=== PATIENT | female | born 1995 ===

== ENCOUNTER 2025-08-23 19:19 | Outpatient (REF) | payer OTHER, SELFPAY ==
--- OUTSIDE RECORDS SUMMARY | 2016-07-31 12:48 | XMS_ITS | Continuity of Care Document ---
Author Organization [facility] Address [address] [place] [address] Phone Care Team Providers Care Sonar Technician Name Role Phone Favian Rodríguez Unavailable Unavailable Allergies, Adverse Reactions, Alerts Substance Reaction Status Criticality No Known Allergies Active No Inform ation Medications Medication Instructions Dosage Effective Dates (start - stop) Status Comments Sprintec (28) 0.25 mg-35 mcg tablet take 1 tablet by oral route every day 1.00 tablet - Active Patient does continuous OCPs Problems Condition Type Effective Dates (start - stop) Clini gracie Status Comments No Known Problems Procedures Procedure Date OFFICE/OUTPATIENT VISIT, EST EST FP MEDICAID URINE TEST FLU VACCINE, 3 YRS & >, IM OFFICE/OUTPATIENT VISIT, EST IMMUNIZATION ADMIN FLU VAC NO PRSV 4 IRINA 3 YRS+ OFFICE/OUTPATIENT VISIT, EST IMMUNIZATION ADMIN HEPB VACC PED/ADOL 3 DOSE IM TB INTRADERMAL TEST TB INTRADERMAL TEST HEP B VACCINE, ADULT, IM OFFICE/OUTPATIENT VISIT, EST TB INTRADERMAL TEST IMMUNIZATION ADMIN HEP B VACCINE, ADULT, IM TB INTRADERMAL TEST OFFICE/OUTPATIENT VISIT, NEW OFFICE/OUTPATIENT VISIT, EST URINE TEST URINE TEST OFFICE/OUTPATIENT VISIT, EST OFFICE/OUTPATIENT VISIT, EST ODH SPECIMEN HANDLING (GC/CHLAMYDIA) Jun RISK ASSISSMENT CARE COORDINATION OFFICE/OUTPATIENT VISIT, EST CARE COORDINATION OFFICE/OUTPATIENT VISIT, EST OFFICE/OUTPATIENT VISIT, EST ROUTINE VENIPUNCTURE RH IG, FULL-DOSE, IM OFFICE/OUTPATIENT VISIT, EST CARE COORDINATION OFFICE/OUTPATIENT VISIT, NEW ODH SPECIMEN HANDLING (GC/CHLAMYDIA) March RISK ASSISSMENT CARE COORDINATION OFFICE/OUTPATIENT VISIT, EST OFFICE/OUTPATIENT VISIT, NEW ROUTINE VENIPUNCTURE RISK ASSISSMENT COUNSELING AND EDUCATION CARE COORDINATION OFFICE/OUTPATIENT VISIT, EST URINE TEST Advance Directives Directive Yes / No Effective Date File Name No Information Encounters Encounter Description Practice Location Reason(s) For Visit Diagnoses Date Provider Providers Copied on Encounter [facility], [address] [place] [address], [id number] , [place] tel: [phone] [facility] No Information 6 Pierre Isaac. [address] [place] [address], [id number] , [place]. tel: [phone] OFFICE/OUTPA TIENT VISIT, EST [facility], [address] [place] [address], [id number] , [place] tel: [phone] [facility] Problem Visit (chief complaint) Bleeding (chief complaint) Irregular menstrual cycle 5 [facility]. [address] [place] [address], [id number] , [place]. tel: [phone] [facility], [address] [place] [address], [id number] , [place] tel:[phone] [facility] No Information 5 [facility] Jada. [address] [place], [place], [id number] , [place]. tel: [phone] [facility], [address] [place] [address], [place], [id number] , [place] tel: [phone] [facility] annual exam (chief complaint) Routine gynecological examinationContracept buddy management 5 [facility] Jada. [address] [place], [place], [id number] , [place]. tel: [phone] OFFICE/OUTPA TIENT VISIT, [facility], [address] [place], [place], [id number] , [place] tel: [phone] [facility] Influenza Vaccine 4 Visci DO Favian. [address] [place], [place], [id number] , [place]. tel: [phone] OFFICE/OUTPA TIENT VISIT, [facility], [address] [place], [place], [id number] , [place] tel: [phone] [facility] No Information 3 Visci DO Favian. [address] [place], [place], [id number] , [place]. tel: [phone] [facility], [address] [place], [place], [id number] , [place] tel: [phone] [facility] No Information 3 Visci DO Favian. [address], [place], [id number] , [place]. tel: [phone] OFFICE/OUTPA TIENT VISIT, [facility], [address] [place], [place], [id number] , [place] tel: [phone] [facility] Need for prophylactic vaccination and inoculation against viralhepatitisScreeni ng examination for pulmonary tuberculosis 3 Visci DO Favian. [address] [place] [address], [place], [id number] , [place]. tel: [phone] OFFICE/OUTPA TIENT VISIT, [facility], [address], [place], [id number] , [place] tel: [phone] [facility] test (chief complaint) examination or test, negative result 2 3 Pierre Isaac. [address], [place], [id number] , [place]. tel: [phone] OFFICE/OUTPA TIENT VISIT, [facility], [address] [place] [address], [place], [id number] , [place] tel: [phone] [facility] Routine PN Visit (chief complaint) Supervision of normal first 2 Dory Davis. [address] [place] [address], [place], [id number] , [place]. tel: [phone] OFFICE/OUTPA TIENT VISIT, [facility], [address] [place] [address], [place], [id number] , [place] tel: [phone] [facility] Routine PN Visit (chief complaint) Supervision of normal first 2 Dory Davis. [address] [place] [address], [id number] , [place]. tel: [phone] OFFICE/OUTPA TIENT VISIT, [facility], [address] [place], [place], [id number] , [place] tel: [phone] [facility] Supervision of normal first 2 Dory Davis. [address] [place], [place], [id number] , [place]. tel: [phone] OFFICE/OUTPA TIENT VISIT, [facility], [address] [place] [address], [place], [id number] , [place] tel: [phone] [facility] Routine Visit (chief complaint) Supervision of normal first 0 2 Dory Davis. [address] [place] [address], [id number] , [place]. tel: [phone] OFFICE/OUTPA TIENT VISIT, [facility], [address], [place], [id number] , [place] tel: [phone] [facility] Supervision of normal first 2 Dory Davis. [address] [place] [address], [id number] , [place]. tel: [phone] OFFICE/OUTPA TIENT VISIT, [facility], [address] [place] [address], [place], [id number] , [place] tel: [phone] [facility] No Information 2 Dory Davis. [address] [place] [address], [id number] , [place]. tel: [phone] OFFICE/OUTPA TIENT VISIT, [facility], [address] [place], [place], [id number] , [place] tel: [phone] [facility] No Information 2 Pierre Isaac. [address] [place] [address], [id number] , [place]. tel: [phone] Family History Family Member Type Diagnosis Age At Onset Father Problem (finding) hypertension Father Problem (finding) Alive and well Father Problem (finding) Heart disease Sister Problem (finding) Alive and well Brother Problem (finding) Alive and well Mother Problem (finding) hypertension Father Problem (finding) raised blood lipids Mother Problem (finding) Alive and well Father Problem (finding) diabetes melli tus in first degree relative Mother Problem (finding) asthma Immunizations Vaccine Date Status Comments Flu (split) (3 yrs or older) administered Source: New Immunization Record Hep B (ped/adol, 3 dose) administered Diana rce: New Immunization Record Hep B (adult) administered Note: HepB vis given today. ; Source: New Immunization Record Payers Payer name Insurance type Covered alliance party ID Authoriza tion(s) [employer] [place] [id number] Medicaid Wrap - [facility] [place] [id number] Social History Type Description Quantity Date Captured Comments Alcohol Use Details Unknown Caffeine Use Details Unknown Tobacco Use Status No Information Smoking Status No Information Sex Female Sexual Orientation Straight or heterosexual Gender Identity Ztzcvj-gq-Cfdd (FTM) /Transgender Male/Trans Man Chief Complaint And Reason For Visit No Information Reason For Referral Reason For Referral No Information Plan Of Treatment Date Type Action Status Goal Tdap. Due on due Goal Td vaccine. Due on 15 due Goal Breast exam. Due on 013 due Goal HPV (1st). Due on 5 due Goal PPD (TST). Due on 3 due Goal Depression screening. Due on due Goal Breast exam. Due on 013 due Goal Tdap. Due on due Goal Depression screening. Due on due Goal HPV (1st). Due on 5 due Goal Td vaccine. Due on 15 due Goal PPD (TST). Due on 3 due Goal HPV (1st). Due on 5 due Goal Breast exam. Due on 013 due Goal Depression screening. Due on due Goal Td vaccine. Due on 15 due Goal PPD (TST). Due on 3 due Goal Tdap. Due on due Goal Breast exam. Due on 012 due Goal PAP. Due on due History Of Present Illness Encounter Date Complaint History Of Prese nt Illness Problem Visit Client presents today with a complaint of bleeding everyday for the last 2 months. Client started Sprintec 02/25/15 taking OCP continuously, worked well the at first. Reports that at the beginning of April she has had mild-moderate bleeding daily. Denies cramping/pain. BP elevated 147/102, will recheck before departing, final BP 138/96. Follow-up appt 08/27/15 @ [facility]. NEL [facility] Bleeding (comments) Patient stat es she start OCPs to regulate her menses. States her first month on OCP went well, then she tried 2 pill pack back to back and it was during the 2nd month that she started bleedig. Wanted to make sure it was okay. Has a strong family history of HTN. Has an appointment in 1 week with PCP and will evaluate HTN. Bleeding Onset: sudden. T he severity level is mild-moderate. The problem is unchanged. The symptoms occur constant. Last menstrual period was on 04/01/2015. The age of menarche onset was 11. Patient not . The patient's relevant history is positive for oral contraceptive use. The patient's relevant history is negative for unprotected intercourse. Associated symptoms include bleeding between menses. Pertinent negatives include fatigue. annual exam Currently pregna nt: yes. : 1. Last LMP was 02/20/2015. Diet healthy.The patient states her exercise level is moderate. The patient does not use tobacco. She has not been exposed to passive smoke. She does not drink alcohol. Additional information: Patient here for annual exam. Patient last lmp 02/20/15. Would like to start BCP. BCP Consent signed. Patient states she has history of irreg. menses. Patient has no other issue or concerns at this time.Nel Blue. Functional Status Date Functional Assessmen t No Information Instructions Date Instruction Additional Infor eliecer Discussed BTB associ ated with continuous OCPs. Reassurance given. Discussed HTN and that sometimes combination pill can increase BP. Patient desire to stay on OCPs and has an appointment in 1 week with PCP and will have HTN evaluated and see if he will manage HTN or request she stop OCPs. Gave information on different progesterone only methods. Will call if desires to change BC method. RTC 3 months if PCP keeps her on OCPs Related to Irregular menstrual cycle Encouraged monthly B SE. Recommend calcium 1000mg QD. Encouraged good dietary intake and exercise. Pap and cervical cultures sent to lab. Patient to call in 2 weeks if desires results. Related to Routine gynecological examination Encouraged to start Sprintec with the onset of her next menses. Take 1 pill po QD at HS. If misses a pill take it as soon as she remembers and if she misses two pills take two pills one day and two pills the next day. Encouraged condoms for back up BC and to prevent STDs. Patient to monitor BP discuss how sometime OCPs can cause increase in BP. 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
--- OUTSIDE RECORDS SUMMARY | 2025-08-23 09:00 | XMS_ITS | Encounter Summary ---
Author Organization [facility] Address [address] [place] [address] Care Team Providers Care Automotive Artist Name Role Phone Favian Mae MD Primary Care Provider + [phone] Reason for Visit * ReasonCommentsGynecologic Exam Encounter Details DateTypeDepartmentCare Team (Latest Contact Info)Fsquiovdwbm96/23/2025 9:00 AM EDTProcedure Visit [facility] [address] [place] [address] Brenda Rouse PA [address] [place] [address] Well woman exam with routine gynecological exam; Encounter for weight loss counseling Social History Tobacco UseTypesPacks/DayYears UsedDateSmoking Tobacco: NeverSmokeless Tobacco: NeverAlcohol UseStandard Drinks/WeekCommentsYes1 (1 standard drink = 0.6 oz pure alcohol)caffeine intake: 2-3 cups per day, coffeeCommentsUnknownSex and Gender InformationValueDate RecordedSex Assigned at BwzgoNonrkp65/14/2023 9:00 AM EDTLegal OrwZesrln74/15/2023 6:35 PM EDTGender OnsdghdjMjcann30/14/2023 9:00 AM EDTSexual KnagfqpvljmMeenyamr69/14/2023 9:00 AM EDTdocumented as of this encounter Last Filed Vital Signs Vital SignReadingTime TakenCommentsBlood Tdggrlit767/9408/23/2025 9:27 AM EDT Pulse--Temperature--Respiratory Rate--Oxygen Saturation--Inhaled Oxygen Concentration--Njmkqg44.5 kg (204 lb)08/23/2025 9:27 AM EDTHeight--Body Mass Index36.1412 7:58 AM ESTdocumented in this encounter Progress Notes * JOAN Valentine - 08/23/2025 9:00 AM EDT Reason for Appointment: Patient ID: Isabel Antonio is a 29 y.o. female who presents for Gynecologic Exam Patient presents today for Annual Exam. MEDICATIONS Current Outpatient Medications Medication Instructions ??? lisinopril-hydroCHLOROthiazide 10-12.5 MG tablet 1 tablet, Daily ??? SEMAGLUTIDE, 2 MG/DOSE, SC Inject under the skin ??? SUMAtriptan (IMITREX) 100 mg, Once as needed ALLERGIES Allergies Allergen Reactions ??? Brexpiprazole Other Reaction(s): Tremors ??? Methylprednisolone GI intolerance ??? Venlafaxine Other Reaction(s): SEDATIVE PROBLEMS Active Ambulatory Problems Diagnosis Date Noted ??? Blurred vision 05/23/2024 ??? COVID-19 05/23/2024 ??? Hypertension 05/23/2024 ??? Impingement syndrome of left shoulder 05/23/2024 ??? Internal derangement of left shoulder 05/23/2024 ??? Rosacea 05/23/2024 ??? Shoulder joint pain 05/23/2024 ??? Bilateral otitis media with effusion 05/26/2024 ??? ETD (Eustachian tube dysfunction), bilateral 05/26/2024 Resolved Ambulatory Problems Diagnosis Date Noted ??? No Resolved Ambulatory Problems Past Medical History: Diagnosis Date ??? Anxiety ??? Ear problems ??? HTN (hypertension) HISTORY PAST MEDICAL HISTORY SOCIAL HISTORY Past Medical History: Diagnosis Date ??? Anxiety ??? Ear problems ??? HTN (hypertension) Social History Tobacco Use ??? Smoking status: Never ??? Smokeless tobacco: Never Substance Use Topics ??? Alcohol use: Yes Alcohol/week: 1.0 - 2.0 standard drink of alcohol Types: 1 - 2 Standard drinks or equivalent per week Comment: caffeine intake: 2-3 cups per day, coffee ??? Drug use: Never FAMILY HISTORY Family History Problem Relation Name Age of Onset ??? Hypertension Mother Xander Haque ??? Diabetes Father Vitro Haque ??? Hypertension Father Vitor Haque ??? Heart disease Father Vitor Haque ??? No Known Problems Sister ??? No Known Problems Brother SURGICAL HISTORY Past Surgical History: Procedure Laterality Date ??? EGD 2014 ??? FOOT FASCIOTOMY 2016 ??? MYRINGOTOMY W/ TUBES 09/07/2024 Timmis REVIEW OF SYSTEMS Review of Systems: Review of Systems Constitutional: Negative. HENT: Negative. Eyes: Negative. Respiratory: Negative. Cardiovascular: Negative. Gastrointestinal: Negative. Genitourinary: Negative. Musculoskeletal: Negative. Skin: Negative. Neurological: Negative. All other systems reviewed and are negative. Hematological: Negative. Endocrine: Negative. Allergic/Immunologic: Negative. OBJECTIVE Objective: Physical Exam Constitutional: Appearance: Normal appearance. She is normal weight. Genitourinary: Right Adnexa: not tender and no mass present. Left Adnexa: not tender and no mass present. No cervical discharge. Breasts: Breasts are soft. Right: Normal. Left: Normal. HENT: Head: Normocephalic. Nose: Nose normal. Mouth/Throat: Mouth: Mucous membranes are moist. Cardiovascular: Rate and Rhythm: Normal rate. Pulses: Normal pulses. Pulmonary: Effort: Pulmonary effort is normal. Breath sounds: Normal breath sounds. Abdominal: General: Bowel sounds are normal. Palpations: Abdomen is soft. Musculoskeletal: General: Normal range of motion. Cervical back: Normal range of motion. Neurological: General: No focal deficit present. Mental Status: She is alert and oriented to person, place, and time. Skin: General: Skin is warm and dry. Psychiatric: Mood and Affect: Mood normal. Behavior: Behavior normal. Thought Content: Thought content normal. Judgment: Judgment normal. Vitals and nursing note reviewed. Exam conducted with a coastal and estuary specialist present. Vitals: Estimated body mass index is 36.14 kg/m?? as calculated from the following: Height as of 24: 5' 3 . Weight as of this encounter: 204 lb. BP: (!) 168/94 No LMP recorded. ASSESSMENT & PLAN ICD-10-CM 1. Well woman exam with routine gynecological exam Z01.419 Pap Smear HPV DNA probe, amplified Annual Exam: Patient presents today for an annual exam. Patient states she is doing well and has no complaints. Pap was obtained without difficulty. Orders Placed This Encounter Procedures ??? HPV DNA probe, amplified Follow Up: Patient is to return in one year for annual unless needed otherwise. Documented by Yanira Sellers on behalf of: JOAN Valentine documented in this encounter Plan of Treatment DateTypeDepartmentCare Team (Latest Contact Info)Sdwirgyxrdd63/08/2025 8:00 AM ESTOffice Visit [facility] [address] [place] [address] Corinne Herman MD [address] [place] [address] NameTypePriorityAssociated DiagnosesOrder SchedulePap SmearPathology and CytologyRoutine Well woman exam with routine gynecological exam Ordered: 08/23/2025HPV DNA probe, amplifiedMicrobiologyRoutine Well woman exam with routine gynecological exam Ordered: 08/23/2025documented as of this encounter Visit Diagnoses Diagnosis Well woman exam with routine gynecological exam Routine gynecological examination Encounter for weight loss counseling documented in this encounter Care Teams Team MemberRelationshipSpecialtyStart DateEnd Date Favian Mae MD [address] [place] [address] PCP - GeneralFamily Medicine04/14/23documented as of this encounter
--- OUTSIDE RECORDS SUMMARY | 2025-08-23 19:31 | XMS_ITS | Clinical Summary ---
Author Organization [facility] Address [address] [place] [address] Care Team Providers Care Straight Pin Making Machine Operator Name Role Phone Favian Mae MD Primary Care Provider + [phone] Allergies Active AllergyReactionsCriticalityNoted FmzjTwownezlIdxxkatwhkyvz91/16/2023 Other Reaction(s): Tremors MethylprednisoloneGI ypiagzxrgsz94/14/0535Npjidlkrtwk39/14/2023 Other Reaction(s): SEDATIVE Medications MedicationSigDispense QuantityRefillsLast FilledStart DateEnd DateStatus lisinopril-hydroCHLOROthiazide 10-12.5 MG tablet Take 1 tablet by mouth in the morning.05/13/2023ctive SEMAGLUTIDE, 2 MG/DOSE, SC Inject under the skinActive SUMAtriptan (Imitrex) 100 MG tablet Take 100 mg by mouth 1 (one) time if ghraqh8410/07/2023ctive metFORMIN XR (Glucophage-XR) 500 MG 24 hr tablet Indications:Encounter for weight loss counselingTake 1 tablet (500 mg) by mouth in the evening. Take with meals Do not crush, chew, or split. 30 tablet 111515Active Active Problems ProblemNoted DateDiagnosed DateBilateral otitis media with bgqdkrur47/26/2024ETD (Eustachian tube dysfunction), borvnglsk60/26/2024lurred cvzini8405/23/2024 COVID-19077126Pkihtglcaffz73/23/2024Impingement syndrome of left shoulder 05/23/2024Internal derangement of left uamtytep32/23/1413Meyrqrc47/23/2024 Shoulder joint pain05/23/2024 Encounters DateTypeDepartmentCare YsdfFeadhdadraz55/23/2025 9:00 AM EDTProcedure Visit [facility] [address] [place] [address] Brenda Rouse PA Well woman exam with routine gynecological exam; Encounter for weight loss /23/2025bstract [facility] [address] [place] [place] [address] Davey Jo DO 08/23/2025amboo flowsheet [facility] [address] [place] [address] Brenda Rouse PA 08/16/20250191Mqazuo91/02/5858Fagalk16/15/2025Travelfrom Last 3 Months Family History Medical HistoryRelationNameCommentsNo Known ProblemsBrotherDiabetesFatherChuck MillerHeart diseaseFatherChuck MillerHypertensionFatherChuck MillerHypertension MotherRobin MillerNo Known ProblemsSisterRelationNameStatusCommentsBrotherAlive1 brotherDaughterAlive1 daughterFatherChuck MillerAliveMotherRobin MillerAlive SisterAlive3 sisters Social History Tobacco UseTypesPacks/DayYears UsedDateSmoking Tobacco: NeverSmokeless Tobacco: Never Tobacco Cessation:Counseling Given: Not Answered Alcohol UseStandard Drinks/WeekCommentsYes1 (1 standard drink = 0.6 oz pure alcohol)caffeine intake: 2-3 cups per day, coffeeCommentsUnknownSex and Gender InformationValueDate RecordedSex Assigned at EywwkBzsnrk47/14/2023 9:00 AM EDTLegal DlmLcgohm67/15/2023 6:35 PM EDTGender BtinusewAwsowg49/14/2023 9:00 AM EDTSexual ZwcgbbygeddHgwabxnl39/14/2023 9:00 AM EDT Last Filed Vital Signs Vital SignReadingTime TakenCommentsBlood Ajnrpbtb693/9410 9:27 AM EDT Jbhgq676304/27/2024 7:32 PM JGJGrtvnzetact17.4 ??C (97.5 ??F)04/27/2024 7:32 PM EDTRespiratory Rate--Oxygen Ifriyevuly54%04/27/2024 7:32 PM EDTInhaled Oxygen Concentration--Efzqdm95.5 kg (204 lb)08/23/2025 9:27 AM BWMCdrmnr222 cm (5' 3 ) 10/09/2024 7:58 AM ESTBody Mass Index36.14112/10/2023 7:58 AM EST Plan of Treatment DateTypeDepartmentCare Team (Latest Contact Info)Agqqonbtpas74/08/2025 8:00 AM ESTOffice Visit [facility] [address] [facility] [address] [place] [address] Corinne Herman MD [address] [facility] [address] [place] [address] Health MaintenanceDue DateLast DoneCommentsInfluenza Vaccine (#1)07/02/2025 11/14/2013Pap Smearervical Cancer Dxvqscpog07/14/2028 HPV/Pxscvw77 Procedures Procedure NamePriorityDate/TimeAssociated DiagnosisCommentsTHINPREP TIS PAP W/REFL HPV MRNA E6/N8Kbxyixb93/14/2023 4:52 PM EDT Screening for cervical cancer from Last 3 Months or Most Recently Relevant to Health Maintenance Results * THINPREP TIS PAP W/REFL HPV MRNA E6/E7 (04/14/2023 4:52 PM EDT)ComponentValue Ref RangeTest MethodAnalysis TimePerformed AtPathologist SignatureCLINICAL INFORMATIONQUESTComment:None givenLMPQUESTComment:None givenPREV. PAPQUEST Comment:None givenPREV. BXQUESTComment:None givenSOURCEQUESTComment:Cervix, EndocervixSTATEMENT OF ADEQUACYQUESTComment: Satisfactory for evaluation. Endocervical/transformation zone component present. INTERPRETATION/RESULTQUESTComment:Negative for intraepithelial lesion or malignancy.CYTOTECHNOLOGISTQUESTComment: GLORRAINE(ASCP) CT screening location: [facility], [address] [place] [address]. (ALWAYS MESSAGE)QUESTComment: EXPLANATORY NOTE: The Pap is a screening test for cervical cancer. It is not a diagnostic test and is subject to false negative and false positive results. It is most reliable when a satisfactory sample, regularly obtained, is submitted with relevant clinical findings and history, and when the Pap result is evaluated along with historic and current clinical information. Specimen (Source)Anatomical Location / LateralityCollection Method / Volume Collection TimeReceived TzyrFvfkr33/14/2023 4:52 PM EDT04/15/2023 4:55 AM EDT Narrative Resulting Agency Comment Performing Organization Information ?Site ID: [id number] ?Name: [facility] ?Address: [address] [place] [id number] ?Director: Antonio Wiggins MD Authorizing ProviderResult TypeResult StatusMona J Nataprawira DOLAB CYTOLOGY ORDERABLESFinal ResultPerforming OrganizationAddressCity/State/ZIP CodePhone Number [facility] from Last 3 Months or Most Recently Relevant to Health Maintenance [place] [address] Care Teams Team MemberRelationshipSpecialtyStart DateEnd Date Favian Mae MD [address] [place] [address] [facility] - [facility]04/14/23
--- OUTSIDE RECORDS SUMMARY | 2025-08-23 19:31 | XMS_ITS | Encounter Summary ---
Author Organization [facility] Address [address] [place] [address] Care Team Providers Care Wafer Cutter Name Role Phone Favian Mae MD Primary Care Provider + [phone] Encounter Details DateTypeDepartmentCare Team (Latest Contact Info)Baxdrzusqwv67/23/2025bstract [facility] [address] [place] [address] Davey Jo DO [address] [facility] [address] [place] [address] Social History Tobacco UseTypesPacks/DayYears UsedDateSmoking Tobacco: NeverSmokeless Tobacco: NeverAlcohol UseStandard Drinks/WeekCommentsYes1 (1 standard drink = 0.6 oz pure alcohol)caffeine intake: 2-3 cups per day, coffeeCommentsUnknownSex and Gender InformationValueDate RecordedSex Assigned at JlecsMdhede60/14/2023 9:00 AM EDTLegal VkhBdmppi87/15/2023 6:35 PM EDTGender WqhskmyiIrxpfe50/14/2023 9:00 AM EDTSexual PyewiaychsuCssxlebz14/14/2023 9:00 AM EDTdocumented as of this encounter Plan of Treatment DateTypeDepartmentCare Team (Latest Contact Info)Ypktzyvydhw86/08/2025 8:00 AM ESTOffice Visit [facility] [address] [place] [address] Corinne Herman MD [address] [facility] [address] [place] [address] documented as of this encounter Visit Diagnoses Not on filedocumented in this encounter Care Teams Team MemberRelationshipSpecialtyStart DateEnd Date Favian Mae MD [address] [place] [address] PCP - GeneralFamily Medicine04/14/23documented as of this encounter
--- OUTSIDE RECORDS SUMMARY | 2025-08-23 19:31 | XMS_ITS | Encounter Summary ---
Author Organization [facility] Address [address] [place] [address] Care Team Providers Care Neurology Director Name Role Phone Favian Mae MD Primary Care Provider + [phone] Encounter Details DateTypeDepartmentCare Team (Latest Contact Info)Jvjdhustyni44/23/2025Bamboo flowsheet [facility] [address] [facility] [place] [address] Brenda Rouse PA [address] [facility] [place] [address] Social History Tobacco UseTypesPacks/DayYears UsedDateSmoking Tobacco: NeverSmokeless Tobacco: NeverAlcohol UseStandard Drinks/WeekCommentsYes1 (1 standard drink = 0.6 oz pure alcohol)caffeine intake: 2-3 cups per day, coffeeCommentsUnknownSex and Gender InformationValueDate RecordedSex Assigned at EhwldIcozoi51/14/2023 9:00 AM EDTLegal ZjjZebiwn36/15/2023 6:35 PM EDTGender SzhncnvsYrqzan86/14/2023 9:00 AM EDTSexual GysxuzrvwjbHdppdezg61/14/2023 9:00 AM EDTdocumented as of this encounter Plan of Treatment DateTypeDepartmentCare Team (Latest Contact Info)Vecznkbgnmy77/08/2025 8:00 AM ESTOffice Visit [facility] [address] [facility] [address] [place] [address] Corinne Herman MD [address] [facility] [address] [place] [address] documented as of this encounter Visit Diagnoses Not on filedocumented in this encounter Care Teams Team MemberRelationshipSpecialtyStart DateEnd Date Favian Mae MD [address] [place] [address] PCP - GeneralFamily Medicine04/14/23documented as of this encounter
--- OUTSIDE RECORDS SUMMARY | 2025-08-23 19:31 | XMS_ITS | Encounter Summary ---
Author Organization [facility] Address [address] [place] [address] Care Team Providers Care Steam Clothes Press Operator Name Role Phone Favian Mae MD Primary Care Provider [phone] Encounter Details DateTypeDepartmentCare Team (Latest Contact Info)Ujqkzkallxs81/16/2025Travel Social History Tobacco UseTypesPacks/DayYears UsedDateSmoking Tobacco: NeverSmokeless Tobacco: NeverAlcohol UseStandard Drinks/WeekCommentsYes1 (1 standard drink = 0.6 oz pure alcohol)caffeine intake: 2-3 cups per day, coffeeCommentsUnknownSex and Gender InformationValueDate RecordedSex Assigned at RlkxsGphfco36/14/2023 9:00 AM EDTLegal RqmCmmkkz12/15/2023 6:35 PM EDTGender VeoqujbfUgtuje50/14/2023 9:00 AM EDTSexual OxxjzumszgjSotjxcsb22/14/2023 9:00 AM EDTdocumented as of this encounter Plan of Treatment DateTypeDepartmentCare Team (Latest Contact Info)Epvfjmsvclh34/08/2025 8:00 AM ESTOffice Visit [facility] [address] [place] [address] [facility] [place] [address] Corinne Heramn MD [address] [place] [address] [address] documented as of this encounter Visit Diagnoses Not on filedocumented in this encounter Care Teams Team MemberRelationshipSpecialtyStart DateEnd Date Favian Mae MD [address] [place] [address] PCP - GeneralFamily Medicine04/14/23documented as of this encounter
== END 2025-08-23 19:20 | disposition home or self-care (01) ==
LOC: LAB 19:19
PROVIDERS: Visit Provider Physician Assistant
DX: Z01.419 Encounter for gynecological examination (general) (routine) without abnormal findings (principal)
CPT/HCPCS: 88175